=== PATIENT | female | born 1995 | race African-American/Black ===

== ENCOUNTER 2017-10-11 12:39 | Emergency (ER) | payer OTHER ==
[~2017-10-11] VITALS: Ht 170.2 cm; Wt 61.0 kg
[2017-10-11 12:45] VITALS: BP 129/58; PULSE 80; RESP 14; TEMP 99.4; O2SAT 99
[2017-10-11] MEDS ORDERED: ALEV220T14 PO (13:01)
--- NOTE | 2017-10-11 14:14 | PD ---
HPI Chief Complaint: Pain: Acute or Chronic Time Seen by Provider: 13:17 Travel History International Travel<30 days: No Contact w/Intl Traveler<30days: No Traveled to known affect area: No History of Present Illness HPI 21-year-old female presents to the emergency room for evaluation of left patellar dislocation. Patient states while dancing yesterday she twisted in her left knee and the kneecap was pushed to the side. She states it popped back in place and she has only had a small amount since then. States she was limping at work yesterday and they sent her home early. She has not been taking anything for symptoms. Pain is mild at rest. Moderate when she is moving. She has been able to ambulate without difficulties. Denies paresthesias. No chronic medical conditions or daily medications. PFSH Past Medical History ?: Not LMP: 09/2017 Social History Tobacco Use: No Allergies-Medications (Allergen,Severity, Reaction): Coded Allergies: No Known Allergies (Unverified Adverse Reaction, Unknown, 10/11/17) Reported Meds & Prescriptions Reported Meds & Active Scripts Active Reported Aleve Arthritis (Naproxen Sodium) 220 Mg Tab 220 Mg PO BID Review of Systems Except as stated in HPI: all other systems reviewed are Neg Physical Exam Narrative GENERAL: Well-nourished, well-developed female no acute distress. Afebrile. Ambulatory. SKIN: Focused skin assessment warm/dry. No erythema or ecchymosis. HEAD: Normocephalic. EYES: No scleral icterus. No injection or drainage. NECK: Supple, trachea midline. No JVD or lymphadenopathy. CARDIOVASCULAR: Regular rate and rhythm without murmurs, gallops, or rubs. RESPIRATORY: Breath sounds equal bilaterally. No accessory muscle use. MUSCULOSKELETAL: No cyanosis. Obvious effusion of the left medial knee. Full range of motion of the knee. 2+ dorsalis pedis pulse. No bony tenderness to palpation. There is significant instability of the left patella. Data Data Last Documented VS Vital Signs Date Time Temp Pulse Resp B/P (MAP) Pulse Ox O2 Delivery O2 Flow Rate FiO2 10/11/17 12:45 99.4 80 14 129/58 (81) 99 Orders Orders Knee, Comp Inc Add Vws(4+Vws) (10/11/17 ) ^ Knee Immobilizer (10/11/17 13:43) ^ Knee Immobilizer (10/11/17 14:18) [facility] Medical Decision Making Medical Screen Exam Complete: Yes Emergency Medical Condition: Yes Medical Record Reviewed: Yes Differential Diagnosis Effusion, fracture, dislocation, sprain, strain Narrative Course 21-year-old female presents to the emergency room for evaluation of left patellar dislocation that occurred yesterday while dancing. States it spontaneously reduced. Since then she has had mild pain with ambulation but significant swelling. She was sent home from work yesterday because of limping but would like to return to work today. Physical exam is reassuring. There is a large effusion to the left medial knee but left lower extremity is neurovascular intact with 2+ dorsalis pedis pulse. She has full range of motion. Patient is able to ambulate with a slight limp. There is obvious instability of the patella. X-ray shows probable suprapatellar effusion. Patient placed in the immobilizer and told to follow-up with a primary care physician or return for worsening symptoms. 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 I see no reason why she cannot return to work. She understands and agrees to plan. Diagnosis Primary Impression: Dislocation of left patella Qualified Codes: S83.005A - Unspecified dislocation of left patella, initial encounter Referrals: Primary Care Physician Departure Forms: Tests/Procedures, Work Release Enter return to work date: October 11, 2017 Additional Instructions: Rest and drink plenty of fluids. Use knee immobilizer. Take ibuprofen with food as directed, as needed for pain. Apply ice to the affected area for 20 minutes at a time, as needed for pain and swelling. Follow-up with a primary care physician. Return to the emergency room for worsening symptoms. Disposition: 01 DISCHARGE HOME Condition: Stable Lisseth Peña October 11, 2017 14:14
--- NOTE | 2017-10-11 14:19 | RADRPT ---
EXAM DATE/TIME: 10/11/2017 14:06 [facility] COMPARISON: No previous studies available for comparison. INDICATIONS : Left patella dislocation one day ago, patient states it popped back in on its own. MEDICAL HISTORY : None. SURGICAL HISTORY : None. ENCOUNTER: Initial ACUITY: 2 days PAIN SCORE: 7/10 LOCATION: Left knee FINDINGS: The bony structures are grossly intact. Specifically, the patella appears intact. There is likely a s mall suprapatellar effusion. No definite fracture or joint dislocation is seen. CONCLUSION: 1. No acute fracture or dislocation. Specifically, the patella appears intact. 2. Probable small suprapatellar joint effusion. Marquez Richey MD on October 11, 2017 at 14:16 Board Certified Radiologist. This report was verified electronically.
== END 2017-10-11 15:00 | disposition home or self-care (01) ==
LOC: NEPK 12:39
DX: S83.005A Unspecified dislocation of left patella, initial encounter (principal); X50.1XXA Overexertion from prolonged static or awkward postures, initial encounter; Y93.41 Activity, dancing
CPT/HCPCS: 73564; 99283